=== PATIENT | male | born 1960 | race Caucasian/White ===

== ENCOUNTER → 2016-05-21 | Outpatient (CLI) | payer BC | LOC: MW.CHUR 11:57 | PROVIDERS: ATTEND Urology | DX: R10.30 Lower abdominal pain, unspecified (principal); R35.1 Nocturia | CPT/HCPCS: 36415; 81001; 84153 ==

== ENCOUNTER 2016-05-30 07:10 | Day surgery (SDC) | payer BC ==
[~2016-05-30 07:10] MED LIST: Lactated Ringers 1,000 ML IV SCH; Sodium Chloride 0.9% 10 ML Syringe FLUSH PRN; Sodium Chloride 0.9% 2.5 ML Syringe FLUSH PRN
[2016-05-30] MEDS ORDERED: Lidocaine 2% 5 ML SDV ONE (07:20)
[2016-05-30] MEDS ORDERED: Propofol 200 MG/20 ML SDV ONE ×2 (07:20→09:16)
[2016-05-30] MEDS ORDERED: fentaNYL 100 MCG/2 ML SDV ONE (07:20)
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
[2016-05-30] MEDS ORDERED: Midazolam 1 MG/ML 2 ML SDV ONE (09:26)
--- NOTE | 2016-05-30 09:40 | PCM.OPNOTE ---
- General Post-Op/Procedure Note Date of Surgery/Procedure: 05/30/16 Operative Procedure(s): Diagnostic colonoscopy Findings: Normal appearing colon Pre Op Diagnosis: Change in bowel habits Post-Op Diagnosis: same Anesthesia Technique: MAC Primary Surgeon: Yanni Jensen Condition: Good
[2016-05-30] MEDS ORDERED: Benzocaine 20% Topical Spray UD MUCMEM ONE (09:48)
--- NOTE | 2016-05-30 09:51 | PCM.POSTAN ---
POST ANESTHESIA ASSESSMENT - MENTAL STATUS Mental Status: alert, oriented - RESPIRATORY Respiratory Status: respiratory rate WNL - CARDIOVASCULAR CV Status: pulse rate WNL, blood pressure stable - GASTROINTESTINAL GI Status: no symptoms - POST OP HYDRATION Hydration Status: adequate & stable - OBSERVATIONS Free Text/Narrative:: no anesthesia problems
--- NOTE | 2016-05-30 22:14 | OR ---
SURGEON: JOHN SERRANO MD DATE OF PROCEDURE: 05/30/2016 PREOPERATIVE DIAGNOSIS: Lower abdominal pain. POSTOPERATIVE DIAGNOSIS: Lower abdominal pain. PROCEDURE PERFORMED: Colonoscopy. INSTRUMENT USED: Olympus colonoscope. ANESTHESIA: MAC. EXTENT OF EXAM: To the cecum. PREPARATION: Good. LIMITATIONS: None. INDICATIONS FOR EXAMINATION: The patient is a 55-year-old male, who presented with lower abdominal pain. He has a past medical history significant for cancer of the ureters for which he has undergone a radical nephrectomy. The patient was noted on recent CT to have mild diverticulosis. He has never had a colonoscopy prior to this. We discussed the need for colonoscopy. We discussed the procedure as well as expected perioperative course. We discussed the risks, including bleeding, infection, or damage to surrounding structures. The patient verbalized understanding and wished to proceed. PROCEDURE IN DETAIL: The patient was brought to the endoscopy suite and placed in left lateral decubitus position. A time-out was completed verifying the patient's name, age, date of , allergies, and procedure to be performed. Monitored anesthesia care was induced and oxygen was provided via face mask throughout the procedure. After adequate sedation was achieved, a digital rectal exam was performed. This examination was within normal limits. A well lubricated colonoscope was then inserted in the rectum and advanced under direct visualization to the level of cecum. The cecum was identified by both visual and anatomic landmarks. A photograph was taken of the cecal cap. Due to looping of the scope, I was unable to retroflex the scope within the cecum. The scope was straightened out and fully withdrawn while examining the color, texture, anatomy, and integrity of mucosa from the cecum to the anal canal. The findings were consistent with normal colonic mucosa. The scope was then brought into the rectum and retroflexed to allow visual visualization of the anal canal opening. This appeared normal. A photograph was taken and the scope was straightened out. The scope was then removed from the patient and the procedure was terminated. The patient was then transferred to the recovery room in stable condition. Cecum to anus time was 9 minutes. ENDOSCOPIC DIAGNOSIS: Normal colonoscopy. RECOMMENDATIONS: Follow up with the primary care provider for further workup. JAK LAMAR /[id number] NEDRA
== END 2016-05-30 10:30 | disposition home or self-care (01) ==
LOC: MW.SDS 07:10 → MERGE 11:15
PROVIDERS: ATTEND Surgery
DX: R10.30 Lower abdominal pain, unspecified (principal); Z90.5 Acquired absence of kidney; Z79.899 Other long term (current) drug therapy; Z86.79 Personal history of other diseases of the circulatory system; Z86.39 Personal history of other endocrine, nutritional and metabolic disease; Z87.898 Personal history of other specified conditions; Z72.0 Tobacco use
CPT/HCPCS: 45378; J2250; J3010; J7120; 00810; A9270-GY; J2704

== ENCOUNTER 2017-11-05 07:33 | Day surgery (SDC) | payer BC ==
[~2017-11-05 07:33] MED LIST changes: +ceFAZolin 1 GM Vial IM ONE
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
[2017-11-05] MEDS ORDERED: Propofol 200 MG/20 ML SDV ONE (08:33)
[2017-11-05] MEDS ORDERED: fentaNYL 250 MCG/5 ML SDV ONE (08:33)
[2017-11-05] MEDS ORDERED: Midazolam 1 MG/ML 2 ML SDV ONE (08:33)
[2017-11-05] MEDS ORDERED: Rocuronium 10 MG/ML 10 ML Syringe ONE (08:33)
[2017-11-05] MEDS ORDERED: Lidocaine 2% 5 ML SDV ONE (08:33)
[2017-11-05] MEDS ORDERED: Ondansetron 4 MG/2 ML SDV ONE (08:33)
[2017-11-05] MEDS ORDERED: ceFAZolin/Dextrose,Iso-Osmotic 2 GM/50 ML Duplex Bag IV ONE (08:39)
[2017-11-05] MEDS ORDERED: Iopamidol 408 MG/ML 50 ML SDV ONE (09:38)
[2017-11-05] MEDS ORDERED: ePHEDrine 50 MG/ML SDV ONE (10:02)
[2017-11-05] MEDS ORDERED: Glycopyrrolate 0.2 MG/ML SDV ONE (10:17)
[2017-11-05] MEDS ORDERED: fentaNYL 100 MCG/2 ML SDV IVPUSH PRN (10:32)
[2017-11-05] MEDS ORDERED: Ketorolac 30 MG/ML SDV ONE (10:43)
--- NOTE | 2017-11-05 11:08 | PCM.POSTAN ---
POST ANESTHESIA ASSESSMENT - MENTAL STATUS Mental Status: Alert, Oriented - RESPIRATORY Respiratory Status: Respiratory Rate WNL, Airway Patent, O2 Saturation Stable - CARDIOVASCULAR CV Status: Pulse Rate WNL, Blood Pressure Stable - GASTROINTESTINAL GI Status: No Symptoms - PAIN Pain Score: 0 - POST OP HYDRATION Hydration Status: Adequate & Stable
[2017-11-05] MEDS ORDERED: fentaNYL 100 MCG/2 ML SDV ONE (11:32)
[2017-11-05] MEDS ORDERED: Acetaminophen/HYDROcodone 325-10 MG Tab PO PRN (11:58)
--- NOTE | 2017-11-05 13:00 | PCM48HPAN ---
Post Anesthesia Note - EVALUATION WITHIN 48HRS OF ANESTHETIC Vital Signs in Normal Range: Yes Patient Participated in Evaluation: Yes Respiratory Function Stable: Yes Airway Patent: Yes Cardiovascular Function Stable: Yes Hydration Status Stable: Yes Pain Control Satisfactory: Yes Nausea and Vomiting Control Satisfactory: Yes Mental Status Recovered: Yes Resp Rate: 20 - COMMENTS/OBSERVATIONS Free Text/Narrative:: PATIENT WAS ASSESSED BY DR MIRANDA FOR POSTOP PAIN ON LEFT SIDE. NO CHANGE PATIENT OK TO GO HOME
--- NOTE | 2017-11-05 13:40 | OR ---
SURGEON: Arnol Cody M.D. 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 OPERATIONS: Cystoscopy, left renoscopy, and left ureteroscopy. FINDINGS: The bladder is clean. The ureter is clean. The inside of the renal pelvis is clean. DESCRIPTION OF PROCEDURE: The patient was given general anesthesia, was placed in the dorsal lithotomy position, prepped and draped in sterile drapes. Cystourethroscopy was done, that was normal with the exception of not having ureteral orifice. The bladder was normal. There were no tumors in the bladder. The bladder does not have any trabeculations. There was no prostatic obstruction. A guidewire was then advanced in the left ureter all the way up into the renal pelvis. The lower ureter was dilated using the UroMax II balloon dilator to approximately 15- Pashto. The flexible ureteroscope was advanced over the guidewire into the left renal pelvis, the inside of which was inspected. A retrograde study was done to make sure all the calices are visualized and they were all clean. So was the renal pelvis and the rest of the ureter going out. At the end to make sure the lower ureter where the ureter was dilated, was also clean, the rigid ureteroscope was used to gain access into that and examine it. With that done, the procedure was terminated. The bladder was emptied and the patient was moved to recovery room in good condition. RUBY / WILLARD /[id number]
== END 2017-11-05 13:45 | disposition home or self-care (01) ==
LOC: MW.SDS 07:33
PROVIDERS: ATTEND Urology
DX: Z85.59 Personal history of malignant neoplasm of other urinary tract organ (principal); E78.00 Pure hypercholesterolemia, unspecified; I10 Essential (primary) hypertension; F17.210 Nicotine dependence, cigarettes, uncomplicated; Z79.899 Other long term (current) drug therapy
CPT/HCPCS: 52344; 76000; A9270; C1769; J0690; J1885; J2250; J2405; J2704; J3010; J3490; J7120; Q9966